=== PATIENT | female | born 1970 | race Caucasian/White ===

== ENCOUNTER 2025-04-19 23:21 | Inpatient (IN) | payer OTHER, MEDICAID ==
[~2025-04-19] VITALS: Ht 152.4 cm; Wt 63.5 kg
[2025-04-19] MEDS ORDERED: MORPHINE SULFATE 4 MG/ML INJ (FOR IV/IM USE) IV ONE (23:45)
[2025-04-20] MEDS: KETOROLAC 15MG/ML VIAL IV ONE (00:53)
[2025-04-20] MEDS: KETAMINE HCL 50 MG/ML 10ML IV ONE ×2 (00:54→01:47)
[2025-04-20] MEDS: LORAZEPAM 2MG/ML UD SYRINGE IV NR (00:55)
[2025-04-20 01:44] LABS: BASOPHILS % 0.2 % (0.0-2.0); EOSINOPHILS % 0.6 % (0.0-5.0); HEMATOCRIT. 39.3 % (36.0-48.0); HEMOGLOBIN. 12.8 g/dL (12.0-16.0); LYMPHOCYTES % 10.3 % (20.0-50.0); MEAN PLATELET VOLUME 7.7 fl (7.4-10.4); MONOCYTES % 6.3 % (2.0-8.0); NEUTROPHILS % 82.6 % (40.0-76.0); PLATELET 285 x1000/uL (130-400); RED BLOOD CELL COUNT 4.59 mill/uL (4.2-5.4); RED CELL DISTRIBUTION WIDTH 13.3 % (11.6-14.6)
[2025-04-20 01:51] LABS: INR 1.0
[2025-04-20 01:52] VITALS: PULSE 89; RESP 16; O2SAT 100
[2025-04-20 01:53] LABS: CREATININE 0.5 mg/dL (0.6-1.0)
[2025-04-20 01:54] LABS: UREA NITROGEN BLOOD 12 mg/dL (9-23)
[2025-04-20] MEDS: CEFTRIAXONE 1GM/50ML 50 ML IV ONE (02:48)
[2025-04-20] MEDS ORDERED: BUPIVACAINE HCL/PF 0.5% (5MG/ML) 10ML ONE (06:20)
[2025-04-20] MEDS ORDERED: POLYMYXIN B SULFATE 500000 UNITS/VIAL ONE (06:20)
[2025-04-20] MEDS ORDERED: VANCOMYCIN HCL 1GM VIAL ONE (06:20)
[2025-04-20] MEDS ORDERED: ACETAMINOPHEN 1000MG/100ML 100 ML IV ONE (08:45)
[2025-04-20] MEDS ORDERED: ACETAMINOPHEN 325MG TABLET PO PRN (09:00)
[2025-04-20] MEDS ORDERED: IPRATROPIUM/ALBUTEROL 0.5-3(2.5)MG/3ML NEB HHN PRN (09:00)
[2025-04-20] MEDS ORDERED: MAGNESIUM/ALUMINUM HYDROXIDE/SIMETHICONE 30ML UDC PO PRN (09:00)
[2025-04-20] MEDS: PANTOPRAZOLE SODIUM 40 MG/VIAL IV SCH (09:00)
[2025-04-20] MEDS ORDERED: GUAIFENESIN 200MG/10ML SUGAR FREE UDC PO PRN (09:00)
[2025-04-20] MEDS ORDERED: CLONIDINE 0.1MG TABLET PO PRN (09:00)
[2025-04-20] MEDS ORDERED: ONDANSETRON HCL 4MG/2ML INJ IV PRN ×2 (09:00→09:15)
[2025-04-20] MEDS ORDERED: HYDRALAZINE 20MG/ML VIAL IV PRN (09:15)
[2025-04-20] MEDS ORDERED: MEPERIDINE HCL/PF 25MG/ML CPJ IV PRN (09:15)
[2025-04-20] MEDS ORDERED: LABETALOL 5MG/ML 4ML INJ IV PRN (09:15)
[2025-04-20] MEDS ORDERED: HYDROMORPHONE HCL/PF 1MG/ML INJ IV PRN (09:15)
[2025-04-20] MEDS ORDERED: FAMOTIDINE 20MG/2ML VIAL IV PRN (09:15)
[2025-04-20] MEDS: CEFAZOLIN 1000MG PREMIX 50 ML IV SCH (10:00)
[2025-04-20] MEDS: HYDRALAZINE 20MG/ML VIAL IV PRN (10:10)
[2025-04-20] MEDS: ACETAMINOPHEN 1,000MG/100ML PREMIX IV PRN (10:10)
[2025-04-20 12:00] VITALS: BP 154/73; PULSE 67; TEMP 36.7
[2025-04-20 15:21] VITALS: BP 154/73; PULSE 67; RESP 16; TEMP 35.584
[2025-04-20 16:00] VITALS: BP 97/73; PULSE 92; TEMP 36.4
[2025-04-20] MEDS: KETOROLAC 15MG/ML VIAL IV PRN (18:00)
[2025-04-20] MEDS ORDERED: DEXTROSE 50% WATER 50ML SYRINGE IV PRN (18:15)
[2025-04-20] MEDS: SODIUM CHLORIDE 0.9% 1,000 ML IV SCH (18:20)
[2025-04-20] MEDS: ACETAMINOPHEN 325MG TABLET PO PRN (19:45)
[2025-04-20 20:00] VITALS: BP 127/60; PULSE 97; TEMP 36.6
[2025-04-20] MEDS: INSULIN LISPRO 100 UNITS/ML SUBCUT SCH (21:00)
[2025-04-20] MEDS: BLOOD SUGAR DIAGNOSTIC STRIP TEST SCH (21:40)
[2025-04-20] MEDS: ASPIRIN 81MG TABLET PO SCH (21:51)
[2025-04-21] VITALS: BP 113/56; PULSE 67; TEMP 36.4
[2025-04-21 04:00] VITALS: BP 132/65; PULSE 65; RESP 16; TEMP 36.8; O2SAT 99
[2025-04-21 07:56] LABS: BASOPHILS % 0.1 % (0.0-2.0); EOSINOPHILS % 0.1 % (0.0-5.0); HEMATOCRIT. 30.1 % (36.0-48.0); HEMOGLOBIN. 10.0 g/dL (12.0-16.0); LYMPHOCYTES % 26.0 % (20.0-50.0); MEAN PLATELET VOLUME 8.8 fl (7.4-10.4); MONOCYTES % 9.9 % (2.0-8.0); NEUTROPHILS % 63.9 % (40.0-76.0); PLATELET 226 x1000/uL (130-400); RED BLOOD CELL COUNT 3.48 mill/uL (4.2-5.4); RED CELL DISTRIBUTION WIDTH 13.2 % (11.6-14.6)
[2025-04-21 07:59] LABS: CREATININE 0.5 mg/dL (0.6-1.0); TRIGLYCERIDE 95 mg/dL (0-150); UREA NITROGEN BLOOD 8 mg/dL (9-23)
[2025-04-21 08:00] VITALS: BP 132/62; PULSE 73; RESP 16; TEMP 36.3; O2SAT 98
[2025-04-21 08:00] LABS: LDL CHOLESTEROL 49 mg/dL (5-100); T4 FREE 1.61 ng/dL (0.89-1.76)
[2025-04-21] MEDS ORDERED: PANTOPRAZOLE SODIUM 40 MG/VIAL IV SCH (09:00)
[2025-04-21] MEDS ORDERED: ENOXAPARIN 40MG/0.4ML SYR SUBCUT SCH (09:00)
[2025-04-21 09:13] LABS: PROTEIN TOTAL 5.6 g/dL (6.0-8.3)
[2025-04-21] MEDS: AMLODIPINE 10MG TABLET PO SCH (09:13)
[2025-04-21 09:14] LABS: ASPARTATE AMINOTRANSFERASE 47 IU/L (<34)
[2025-04-21 09:15] LABS: BILIRUBIN DIRECT 0.2 mg/dL (<=3.0); BILIRUBIN TOTAL 1.0 mg/dL (0.1-1.0)
[2025-04-21 12:00] VITALS: BP 134/62; PULSE 75; RESP 16; TEMP 36.4; O2SAT 98
[2025-04-21] MEDS ORDERED: NALOXONE HCL 0.4MG/ML VIAL IV PRN (12:15)
[2025-04-21] MEDS: HYDROCODONE/ACETAMINOPHEN 5/325MG TABLET PO PRN (13:32)
[2025-04-21 16:00] VITALS: BP 129/63; PULSE 76; RESP 16; TEMP 36.6; O2SAT 98
[2025-04-21] MEDS: ASCORBIC ACID 500 MG TABLET PO SCH (17:48)
[2025-04-21] MEDS: FERROUS SULFATE 325MG TABLET PO SCH (17:48)
[2025-04-21 20:00] VITALS: BP 132/61; PULSE 75; RESP 18; TEMP 36.5; O2SAT 98
[2025-04-21] MEDS: ENOXAPARIN 40MG/0.4ML SYR SUBCUT SCH (21:37)
[2025-04-22 04:00] VITALS: BP 125/57; PULSE 61; RESP 16; TEMP 36.7; O2SAT 96
[2025-04-22 08:00] VITALS: BP 125/57; PULSE 72; RESP 17; TEMP 37.8; O2SAT 97
[2025-04-22 08:31] LABS: BASOPHILS % 0.6 % (0.0-2.0); EOSINOPHILS % 2.6 % (0.0-5.0); HEMATOCRIT. 29.6 % (36.0-48.0); HEMOGLOBIN. 10.0 g/dL (12.0-16.0); LYMPHOCYTES % 37.4 % (20.0-50.0); MEAN PLATELET VOLUME 8.0 fl (7.4-10.4); MONOCYTES % 7.0 % (2.0-8.0); NEUTROPHILS % 52.4 % (40.0-76.0); PLATELET 232 x1000/uL (130-400); RED BLOOD CELL COUNT 3.46 mill/uL (4.2-5.4); RED CELL DISTRIBUTION WIDTH 12.9 % (11.6-14.6)
[2025-04-22 09:18] LABS: CREATININE 0.5 mg/dL (0.6-1.0); UREA NITROGEN BLOOD 10 mg/dL (9-23)
[2025-04-22 09:20] LABS: PHOSPHORUS 3.0 mg/dL (2.5-4.9)
[2025-04-22 20:00] VITALS: BP 106/47; PULSE 72; RESP 18; TEMP 36.4; O2SAT 98
[2025-04-23] VITALS (7 sets, daily range): BP systolic 110–145; BP diastolic 54–68; PULSE 65–76; RESP 18–19; TEMP 36.2–36.6; O2SAT 97–99
[2025-04-23 08:16] LABS: BASOPHILS % 0.6 % (0.0-2.0); EOSINOPHILS % 4.6 % (0.0-5.0); HEMATOCRIT. 29.6 % (36.0-48.0); HEMOGLOBIN. 9.9 g/dL (12.0-16.0); LYMPHOCYTES % 34.7 % (20.0-50.0); MEAN PLATELET VOLUME 8.4 fl (7.4-10.4); MONOCYTES % 7.5 % (2.0-8.0); NEUTROPHILS % 52.6 % (40.0-76.0); PLATELET 261 x1000/uL (130-400); RED BLOOD CELL COUNT 3.45 mill/uL (4.2-5.4); RED CELL DISTRIBUTION WIDTH 13.1 % (11.6-14.6)
[2025-04-23] MEDS: DOCUSATE SODIUM 100MG CAPSULE PO PRN (08:29)
[2025-04-23 08:30] LABS: CREATININE 0.5 mg/dL (0.6-1.0); UREA NITROGEN BLOOD 14 mg/dL (9-23)
[2025-04-23 08:32] LABS: PHOSPHORUS 3.9 mg/dL (2.5-4.9)
[2025-04-23] MEDS ORDERED: FERR-63 PO (13:54)
[2025-04-23] MEDS ORDERED: PROT40 PO (13:54)
[2025-04-23] MEDS ORDERED: ASPI-1160 PO (13:54)
[2025-04-23] MEDS ORDERED: AMLO10TA80 PO (13:54)
[2025-04-23] MEDS ORDERED: TRAM-534 PO ×2 (13:54→13:59)
[2025-04-23] MEDS ORDERED: ASCO500T20 PO (13:54)
== END 2025-04-23 19:45 | disposition home health service (06) | DRG 494 ==
LOC: ER 23:21 → EDBD 04-20 06:20 → 7EST 04-20 06:20 → EDBEDREQTM 04-20 06:25 → EDBEDREQ 04-20 06:25 → EDBEDREQSVC 04-20 06:26 → ENRESERV 04-20 06:39
PROVIDERS: ADMIT Internal Medicine; ATTEND Internal Medicine
PROC: 0QSG36Z Reposition Right Tibia with Intramedullary Internal Fixation Device, Percutaneous Approach (ICD-10-PCS; principal; 2025-04-20)
DX: S82.251B Displaced comminuted fracture of shaft of right tibia, initial encounter for open fracture type I or II (principal); S39.81XA Other specified injuries of abdomen, initial encounter; D64.9 Anemia, unspecified; E11.9 Type 2 diabetes mellitus without complications; I10 Essential (primary) hypertension; D72.829 Elevated white blood cell count, unspecified; S82.451B Displaced comminuted fracture of shaft of right fibula, initial encounter for open fracture type I or II; S20.219A Contusion of unspecified front wall of thorax, initial encounter; S40.812A Abrasion of left upper arm, initial encounter; W18.39XA Other fall on same level, initial encounter; Z79.899 Other long term (current) drug therapy; Z90.710 Acquired absence of both cervix and uterus; Y93.89 Activity, other specified; Y92.89 Other specified places as the place of occurrence of the external cause; Y99.8 Other external cause status
CPT/HCPCS: 36415; 73590; 74176; 76000; 76705; 80048; 80061; 80076; 82962; 83036; 83540; 83550; 83735; 84100; 84439; 84443; 85025; 94070; 97110; 97116; 97162; 97166; 97530; 97535; 99285; A4615; A6449; J0360; J0665; J0690; J0696; J1650; J1885; J2060; J2470; J3373; J3490; J7030; C1713; C1769; J0131